=== PATIENT | male | born 1975 | race Caucasian/White ===

== ENCOUNTER 2020-01-16 19:44 | Emergency (ER) | payer BC ==
[~2020-01-16] VITALS: Ht 172.7 cm; Wt 99.8 kg
[2020-01-16 19:46] VITALS: Ht 172.7 cm; Wt 99.8 kg
[2020-01-16 20:24] LABS: BASOPHIL % 0.8 % (0-2); PLATELET COUNT 145 x10^3mcL (130-400); RED CELL DISTRIBUTION WIDTH 14.8 % (11.5-14.5)
[2020-01-16 20:42] LABS: CALCIUM 8.3 mg/dL (8.5-10.1); CARBON DIOXIDE 28.5 mmol/L (21-32); CHLORIDE SERUM 99 mmol/L (98-107); CREATININE SERUM 1.1 mg/dL (0.7-1.3); GFR1 > 60 mL/min; GLUCOSE SERUM 128 mg/dL (74-106); POTASSIUM SERUM 4.3 mmol/L (3.5-5.1); SODIUM SERUM 135 mmol/L (136-145)
[2020-01-16 20:49] LABS: ALBUMIN 3.4 g/dL (3.4-5.0); ALKALINE PHOSPHATASE 53 U/L (46-116); ALT/SGPT 48 U/L (16-63); AST/SGOT 25 U/L (15-37); BILIRUBIN TOTAL 0.7 mg/dL (0.20-1.00); TOTAL PROTEIN, SERUM 6.5 g/dL (6.4-8.2)
[2020-01-16 22:11] VITALS: BP 108/59
== END 2020-01-16 22:11 | disposition home or self-care (01) ==
LOC: ED 19:44
PROVIDERS: Student in an Organized Health Care Education/Training Program
DX: R25.1 Tremor, unspecified (principal); R55 Syncope and collapse; Z98.890 Other specified postprocedural states
CPT/HCPCS: 82962